=== PATIENT | female | born 1940 ===

== ENCOUNTER 2018-02-19 07:21 | Day surgery (SDC) | payer MEDICARE ==
[2018-02-13 09:17] VITALS: BMI 23.8
[~2018-02-19 07:21] MED LIST: Lactated Ringer's 500 ML IV ONE; Phenylephrine 2.5% Opht Soln OS SCH; Tropicamide 1% Opht SOLUTION OS SCH
[2018-02-19] MEDS ORDERED: Lactated Ringer's 500 ML IV ONE (08:00)
[2018-02-19] MEDS ORDERED: Gentamicin 80 mg/2mL Inj. ONE (09:04)
[2018-02-19] MEDS ORDERED: Hyaluronate Sodium 10 mg/ml Ophth Syringe ONE (09:05)
[2018-02-19] MEDS ORDERED: MethylPREDNISolone 40 mg Vial ONE (09:05)
[2018-02-19] MEDS ORDERED: Lidocaine 2% MPF (5 ml) Inj ONE (09:29)
[2018-02-19] MEDS ORDERED: Hyaluronidase Human, Recombi 150 U/ML VIAL ONE (09:31)
[2018-02-19] MEDS ORDERED: Propofol 10 mg/ml Inj (20 ML) ONE (10:03)
[2018-02-19] MEDS ORDERED: Phenylephrine 2.5% Opht Soln ONE (11:02)
[2018-02-19] MEDS ORDERED: Cyclopentolate 1% Opth (2 ml) ONE (11:03)
[2018-02-19 13:17] VITALS: BP 130/76; PULSE 61; RESP 18; TEMP 98; O2SAT 100
--- NOTE | 2018-02-19 23:08 | OP ---
PROCEDURE DATE: 02/19/2018 PREOPERATIVE DIAGNOSIS: Bullous keratopathy, left eye. POSTOPERATIVE DIAGNOSIS: Bullous keratopathy, left eye. PROCEDURE: Descemet's stripping endothelial keratoplasty, left eye. SURGEON: Robles Avila MD TYPE OF ANESTHESIA: Retrobulbar block. COMPLICATIONS: None. ESTIMATED BLOOD LOSS: 0.5 mL DESCRIPTION OF PROCEDURE: The patient was brought to the operating room and given IV sedation. A retrobulbar block was given to left eye. The patient was then prepped and draped in the usual sterile fashion sitting superiorly. The bullous keratopathy was noted in the left eye. A 0.12 Fly scissors were used to create a limbal peritomy. Once this was complete, cautery was used for hemostasis. A 5-mm scleral tunnel was then created with a [place] Bl[employer] and then two stab incisions were made. The anterior chamber was deepened with viscoelastic. Through the scleral tunnel, a keratome was used to enter the anterior chamber. The cornea was marked with an 8.5 mm marker and a Reverse Sinskey was introduced into the anterior chamber to remove the Descemet's membrane. Once it was done, Erich Scraper was used to scrape the stromal portion. Three stab incisions were made into the cornea to work as stents. Automated I and A was used to remove all the Viscoat. Miostat was then introduced into the eye to shrink the pupil. The wound was then fully opened to its 5 mm diameter. Next, the attention was then turned to the donor tissue. an 8.5 mm donor punch was then made. The lenticule was then placed on the eye and was pulled using a taco fashion, held by Otf forceps and introduced into the anterior chamber. The wound was then closed with 10-0 nylon sutures, which are buried. The lenticule was then unfolded in the eye and held in place with air over the course of 10 minutes. Dilating drops were given every five minutes to dilate the pupil. Once this was complete, the bubble was shrunk to the size of lenticule. The lenticule was in good position. Subconjunctival antibiotics and steroids were given. The patient returned to the recovery room in stable condition with a patch and shield. Robles Avila MD [facility] # [id number]
== END 2018-02-19 13:21 | disposition home or self-care (01) ==
LOC: C.SDS 07:21
PROVIDERS: ATTEND Ophthalmology
DX: H18.12 Bullous keratopathy, left eye (principal)
CPT/HCPCS: 65756; 88305; J1580; J2704; J2920; J3470; J7120